=== PATIENT | female | born 1980 | race Caucasian/White ===

== ENCOUNTER 2017-08-31 22:16 | Emergency (ER) | payer MEDICAID ==
[~2017-08-31] VITALS: Ht 167.6 cm; Wt 95.8 kg
[2017-08-31] MEDS ORDERED: SODIUM CHLORIDE FLUSH 10ML SYR IVF ONE (23:00)
[2017-08-31] MEDS ORDERED: AMPICILLIN/SULBACTAM 3 GM in SODIUM CHLORIDE 0.9% 100 ML IV ONE (23:00)
[2017-08-31 23:07] LABS: BASOPHILS # (AUTO) 0.02 x10^3/uL (0-0.1); BASOPHILS % (AUTO) 0 % (0-1); EOSINOPHILS # (AUTO) 0.18 x10^3/uL (0-0.4); EOSINOPHILS % (AUTO) 2 % (1-7); LYMPHOCYTES # (AUTO) 2.11 x10^3/uL (1-3.4); LYMPHOCYTES % (AUTO) 19 % (22-44); MD NO; MEAN CORPUSCULAR HEMOGLOBIN 28.7 pg (27.0-34.8); MEAN CORPUSCULAR HGB CONC 33.2 g/dL (32.4-35.8); MEAN CORPUSCULAR VOLUME 86.5 fL (80-100); MEAN PLATELET VOLUME 8.6 fL (7.4-10.4); MONOCYTES # (AUTO) 0.77 x10^3/uL (0.2-0.8); MONOCYTES % (AUTO) 7 % (2-9); NEUTROPHILS # (AUTO) 7.98 x10^3/uL (1.8-6.8); NEUTROPHILS % (AUTO) 72 % (42-75); PLATELET COUNT 310 x10^3/uL (130-400); RED BLOOD COUNT 4.55 x10^6/uL (3.82-5.3); RED CELL DISTRIBUTION WIDTH 14.8 % (9.6-15.2)
[2017-08-31 23:37] LABS: ALBUMIN 3.4 g/dL (3.4-5.0); ANION GAP 7 mmol/L (5-15); CALCIUM 8.4 mg/dL (8.5-10.1); CHLORIDE 105 mmol/L (98-107); CREATININE 0.88 mg/dL (0.55-1.02)
[2017-09-01 00:23] VITALS: BP 118/78
== END 2017-09-01 00:42 | disposition home or self-care (01) ==
LOC: ED 09-01 00:02
DX: L03.115 Cellulitis of right lower limb (principal)
CPT/HCPCS: 36415; 80048; 82040; 85025; 96365; 99284; J0295

== ENCOUNTER 2018-01-02 13:07 | Emergency (ER) | payer MEDICAID ==
[~2018-01-02] VITALS: Ht 167.6 cm; Wt 92.4 kg
[2018-01-02 13:29] VITALS: BP 133/86
== END 2018-01-02 15:42 | disposition left against medical advice (07) ==
LOC: ED 15:35
DX: B02.9 Zoster without complications (principal); R21 Rash and other nonspecific skin eruption
CPT/HCPCS: 99283

== ENCOUNTER 2018-03-08 19:07 | Emergency (ER) | payer MEDICAID, OTHER ==
[~2018-03-08] VITALS: Ht 167.6 cm; Wt 87.0 kg
[2018-03-08 20:02] LABS: BASOPHILS # (AUTO) 0.07 x10^3/uL (0-0.1); BASOPHILS % (AUTO) 1 % (0-1); EOSINOPHILS # (AUTO) 0.16 x10^3/uL (0-0.4); EOSINOPHILS % (AUTO) 2 % (1-7); LYMPHOCYTES # (AUTO) 2.36 x10^3/uL (1-3.4); LYMPHOCYTES % (AUTO) 30 % (22-44); MD NO; MEAN CORPUSCULAR HEMOGLOBIN 29.2 pg (27.0-34.8); MEAN CORPUSCULAR HGB CONC 33.3 g/dL (32.4-35.8); MEAN CORPUSCULAR VOLUME 87.7 fL (80-100); MEAN PLATELET VOLUME 9.1 fL (7.4-10.4); MONOCYTES # (AUTO) 0.68 x10^3/uL (0.2-0.8); MONOCYTES % (AUTO) 9 % (2-9); NEUTROPHILS # (AUTO) 4.63 x10^3/uL (1.8-6.8); NEUTROPHILS % (AUTO) 59 % (42-75); PLATELET COUNT 302 x10^3/uL (130-400); RED BLOOD COUNT 4.73 x10^6/uL (3.82-5.3); RED CELL DISTRIBUTION WIDTH 14.3 % (9.6-15.2)
[2018-03-08 20:13] LABS: ANION GAP 8 mmol/L (5-15); CALCIUM 8.8 mg/dL (8.5-10.1); CHLORIDE 109 mmol/L (98-107); CREATININE 0.92 mg/dL (0.55-1.02)
[2018-03-08 21:06] VITALS: BP 123/80
== END 2018-03-08 21:31 | disposition home or self-care (01) ==
LOC: ED 21:26
DX: L03.116 Cellulitis of left lower limb (principal)
CPT/HCPCS: 36415; 80048; 85025; 99285

== ENCOUNTER 2019-08-04 00:53 | Emergency (ER) | payer SELFPAY ==
[~2019-08-04] VITALS: Ht 162.6 cm; Wt 91.0 kg
[2019-08-04 00:55] VITALS: BP 120/69
[2019-08-04] MEDS ORDERED: LIDOCAINE-MPF 2% ,5ML ONE (01:46)
[2019-08-04] MEDS ORDERED: OXYcodone/APAP 5/325MG TABLET ONE (01:47)
[2019-08-04] MEDS ORDERED: LIDOCAINE 2%, 20ML SQ ONE (02:00)
[2019-08-04] MEDS ORDERED: OXYcodone/APAP 5/325MG TABLET PO ONE (02:00)
== END 2019-08-04 02:33 | disposition home or self-care (01) ==
LOC: ED 01:54
DX: L03.115 Cellulitis of right lower limb (principal); L02.214 Cutaneous abscess of groin
CPT/HCPCS: 10060; 99283

== ENCOUNTER 2019-08-05 14:57 | Emergency (ER) | payer SELFPAY ==
[~2019-08-05] VITALS: Ht 167.6 cm; Wt 90.2 kg
--- NOTE | 2019-08-05 15:27 | NUR ---
PT HAD ABSCESS I&D WITH PACKING TWO NIGHTS AGO. PT STATES PAIN HAS INCREASED AND SITE FEELS HARD. CONNECTED TO MONITORING. CALL LIGHT IN REACH. BF AT BEDSIDE. AWAITING ORDERS AT THIS TIME.
[2019-08-05] MEDS ORDERED: HYDROmorphone 1 MG/ML, 1ML INJ ONE (15:42)
[2019-08-05] MEDS ORDERED: ONDANSETRON 2MG/ML, 2ML ONE (15:42)
--- NOTE | 2019-08-05 15:44 | NUR ---
PIV PLACED. LABS DRAWN. PROVIDER AT BEDSIDE FOR ASSESSMENT.
--- NOTE | 2019-08-05 15:52 | NUR ---
MEDS ADMIN PER AUG. AT BEDSIDE.
--- NOTE | 2019-08-05 15:58 | NUR ---
UA AT BEDSIDE.
[2019-08-05] MEDS ORDERED: ONDANSETRON 2MG/ML, 2ML IVPush ONE (16:00)
[2019-08-05] MEDS ORDERED: SODIUM CHLORIDE FLUSH 10ML SYR IVF ONE (16:00)
[2019-08-05] MEDS ORDERED: HYDROmorphone 2 MG/ML, 1ML IVPush PRN (16:00)
--- NOTE | 2019-08-05 16:38 | NUR ---
ALL RESULTS ARE BACK AT THIS TIME. CHART UP FOR RECHECK.
[2019-08-05] MEDS ORDERED: CEFTRIAXONE PMX 1GM/50ML 50 ML ONE (16:46)
--- NOTE | 2019-08-05 16:52 | NUR ---
IV ROCEPHIN STARTED PER AUG. PT RESTING ON [employer] PLAYING ON PHONE. KAVIN.
[2019-08-05 16:53] VITALS: BP 120/72
[2019-08-05] MEDS ORDERED: CEFTRIAXONE PMX 1GM/50ML 50 ML IV ONE (17:00)
== END 2019-08-05 17:46 | disposition home or self-care (01) ==
LOC: ED 16:21
DX: L02.211 Cutaneous abscess of abdominal wall (principal); R10.30 Lower abdominal pain, unspecified; F17.210 Nicotine dependence, cigarettes, uncomplicated
CPT/HCPCS: 76857; 96365; 96375; 99284; J0696; J1170; J2405